=== PATIENT | male | born 1955 | race African-American/Black ===

== ENCOUNTER 2023-10-13 12:17 | Inpatient (IN) | payer MEDICARE, OTHER ==
[~2023-10-13] VITALS: Ht 172.7 cm; Wt 95.1 kg
[2023-10-13] VITALS (12 sets, daily range): BP systolic 87–137; BP diastolic 56–77; PULSE 67–117; RESP 18–32; TEMP 97.7–99.3; O2SAT 80–100
[~2023-10-13 12:17] MED LIST: ASPI-1444 PO; ATOR40TA28 PO; DIAZ10 PO; PANT-31 PO; POTA8TAB71 PO; QUET300T2 PO; TRAZ-252 PO; ZIPR80CA9 PO
[2023-10-13] MEDS ORDERED: 0.9% SODIUM CHLORIDE 10 ML SYRINGE IVP PRN (12:45)
[2023-10-13] MEDS ORDERED: SODIUM CHLORIDE 0.9% 2,800 ML IV ONE (13:00)
[2023-10-13 13:18] LABS: MEAN CORPUSCULAR HEMOGLOBIN 20.3 pg (26.0-34.0); MEAN CORPUSCULAR HGB CONC 27.8 G/dL (31.0-37.0); MEAN CORPUSCULAR VOLUME 73 fL (80-100); PLATELET COUNT (AUTO) 151 K/uL (150-450); RED BLOOD CELL COUNT(AUTO) 1.43 MIL/uL (4.50-5.90); RED CELL DISTRIBUTION WIDTH 17.6 % (11.5-14.5)
[2023-10-13 13:20] LABS: CARBON DIOXIDE 11 mmol/L (22-29); CHLORIDE 103 mmol/L (98-107); POTASSIUM 4.3 mmol/L (3.5-5.1); SODIUM SERUM 141 mmol/L (136-145)
[2023-10-13 13:21] LABS: ANION GAP 27 mmol/L (8-16); CALCIUM, TOTAL 8.8 mg/dL (8.8-10.5); CREATININE 1.78 mg/dL (0.60-1.30); GLOMERULAR FILTR. RATE CALC 46 mL/min (>60); GLUCOSE,RANDOM 127 mg/dL (70-110); UREA NITROGEN, BLOOD 15 mg/dL (7-18)
[2023-10-13 13:26] LABS: ALBUMIN 3.4 g/dL (3.4-5.0); ALKALINE PHOSPHATASE 60 U/L (46-116); ASPARTATE AMINOTRANSFERASE 30 U/L (15-37); TOTAL PROTEIN, SERUM 7.8 g/dL (6.4-8.2)
[2023-10-13 13:27] LABS: INR 1.5 (0.9-1.1); PROTHROMBIN TIME 15.2 SEC (9.4-11.6)
[2023-10-13 13:28] LABS: HEMOGLOBIN 2.9 g/dL (13.5-17.5)
[2023-10-13 13:30] LABS: HEMATOCRIT 10.5 % (41-53)
[2023-10-13 13:32] LABS: LACTIC ACID 14.8 mmol/L (0.4-2.0)
[2023-10-13 13:50] LABS: ALANINE AMINOTRANSFERASE 14 U/L (12-78)
[2023-10-13 14:03] LABS: BAND NEUTROPHILS % (MANUAL) 7 % (0-5); LYMPHOCYTES % (MANUAL) 17 % (22-44); MONOCYTES % (MANUAL) 3 % (2-9); RBC MORPHOLOGY COMMENT ABNORMAL RBC MORPH; SEGMENTED NEUTROPHILS % 73 % (40-70); TOTAL CELLS COUNTED 100
[2023-10-13] MEDS ORDERED: HYDROCODONE/ACETAMINOPHEN 5-325 MG TABLET PO PRN (15:00)
[2023-10-13] MEDS ORDERED: ONDANSETRON HCL 4 MG/2 ML VIAL IVP PRN (15:00)
[2023-10-13] MEDS ORDERED: MAGNESIUM HYDROXIDE SUSPENSION 30 ML UDCUP PO PRN (15:00)
[2023-10-13] MEDS ORDERED: BISACODYL 10 MG RECTAL RECTAL SUPPOSITORY PR PRN (15:00)
[2023-10-13] MEDS ORDERED: ACETAMINOPHEN 325 MG TABLET PO PRN (15:00)
[2023-10-13] MEDS ORDERED: ZOLPIDEM TARTRATE 5 MG TABLET PO PRN (15:00)
[2023-10-13 15:38] LABS: % IRON SATURATION 3.7 % (30-44)
[2023-10-13] MEDS ORDERED: PEG 3350/NA SULF,BICARB,CL/KCL 4000 ML SOLUTION PO ONE (16:45)
[2023-10-13] MEDS ORDERED: SODIUM CHLORIDE 0.9% 500 ML IV ONE (17:27)
[2023-10-13] MEDS ORDERED: ALBUTEROL SULFATE 2.5 MG/0.5 ML NEB SOLUTION NEB PRN (18:45)
[2023-10-13] MEDS ORDERED: FUROSEMIDE 20 MG/2 ML VIAL IVP ONE (18:45)
[2023-10-13] MEDS: ZIPRASIDONE HCL 80 MG CAPSULE PO SCH (18:46)
[2023-10-13] MEDS: IPRATROPIUM BROMIDE 0.5 MG/2.5 ML NEB SOLUTION NEB PRN (19:18)
[2023-10-13 20:09] LABS: ABG BASE EXCESS -13.8 mmol/L (-2.0-3.0); ABG CARBOXYHEMOGLOBIN 0.8 % (0.0-1.5); ABG HCO3 13.5 mmol/L (22.0-26.0); ABG METHEMOGLOBIN 1.3 % (0.0-1.5); ABG OXYGEN CONTENT 1.7 mL/dL (15.0-23.0); ABG OXYHEMOGLOBIN 24.3 % (94.0-100.0); ABG PCO2 28 mmHg (35-45); ABG PH 7.279 (7.35-7.450); SOURCE, BLOOD GAS ARTERIAL; TEMPERATURE, FAHRENHEIT, BG 99.3 FAHREN (96.0-98.6)
[2023-10-13 20:10] LABS: ABG OXYGEN SATURATION 24.8 % (95.0-98.0); ABG TOTAL HEMOGLOBIN 4.9 G/dL (12.0-18.0); ALLEN TEST, BLOOD GAS Positive; PO2, ARTERIAL BG 19.1 mmHg (79.0-87.0); SITE, BLOOD GAS RT RADIAL
[2023-10-13 20:11] LABS: O2 DEVICE,BLOOD GAS NON REBREATHER (ROOM AIR)
[2023-10-13] MEDS: ATORVASTATIN CALCIUM 40 MG TABLET PO SCH (21:00)
[2023-10-13] MEDS: QUEtiapine FUMARATE 300 MG TABLET PO SCH (21:00)
[2023-10-13] MEDS: TraZODone HCL 50 MG TABLET PO SCH (21:00)
[2023-10-13] MEDS: DOCUSATE SODIUM 100 MG CAPSULE PO SCH (21:00)
[2023-10-13 21:45] LABS: ABG BASE EXCESS -8.8 mmol/L (-2.0-3.0); ABG CARBOXYHEMOGLOBIN 1.6 % (0.0-1.5); ABG HCO3 17.7 mmol/L (22.0-26.0); ABG METHEMOGLOBIN 0.2 % (0.0-1.5); ABG OXYGEN CONTENT 8.3 mL/dL (15.0-23.0); ABG OXYGEN SATURATION 99.9 % (95.0-98.0); ABG OXYHEMOGLOBIN 98.1 % (94.0-100.0); ABG PCO2 29 mmHg (35-45); SOURCE, BLOOD GAS ARTERIAL; TEMPERATURE, FAHRENHEIT, BG 97.9 FAHREN (96.0-98.6)
[2023-10-13 21:46] LABS: ABG TOTAL HEMOGLOBIN 5.3 G/dL (12.0-18.0); ALLEN TEST, BLOOD GAS Positive; SITE, BLOOD GAS RT RADIAL
[2023-10-13 21:47] LABS: O2 DEVICE,BLOOD GAS BIPAP (ROOM AIR); SPONTANEOUS VT, BG 1373 ml
[2023-10-13] MEDS: PANTOPRAZOLE SODIUM 40 MG/VIAL IVP SCH (22:30)
[2023-10-13 23:27] LABS: BASOPHILS % (AUTO) 0.3 % (0.0-2.0); EOSINOPHILS % (AUTO) 0 % (1.0-6.0); LYMPHOCYTES # (AUTO) 1.3 K/uL (1.0-4.8); LYMPHOCYTES % (AUTO) 10.7 % (22.0-44.0); MEAN CORPUSCULAR HEMOGLOBIN 23.7 pg (26.0-34.0); MEAN CORPUSCULAR HGB CONC 29.6 G/dL (31.0-37.0); MEAN CORPUSCULAR VOLUME 80 fL (80-100); MONOCYTES # (AUTO) 1.7 K/uL (0.1-1.0); MONOCYTES % (AUTO) 14.2 % (2.0-9.0); NEUTROPHILS % (AUTO) 74.8 % (40.0-70.0); PLATELET COUNT (AUTO) 120 K/uL (150-450); RED BLOOD CELL COUNT(AUTO) 1.99 MIL/uL (4.50-5.90); RED CELL DISTRIBUTION WIDTH 22.7 % (11.5-14.5); WHITE BLOOD COUNT (AUTO) 12.1 K/uL (4.5-11.0)
[2023-10-13 23:42] LABS: HEMOGLOBIN 4.7 g/dL (13.5-17.5)
[2023-10-14] VITALS (28 sets, daily range): BP systolic 112–156; BP diastolic 53–99; PULSE 81–125; RESP 18–52; TEMP 98–99.8; O2SAT 83–100
[2023-10-14] MEDS: QUEtiapine FUMARATE 300 MG TABLET PO SCH ×2 (00:08→21:00)
[2023-10-14] MEDS: TraZODone HCL 50 MG TABLET PO SCH ×2 (00:08→21:00)
[2023-10-14] MEDS: ATORVASTATIN CALCIUM 40 MG TABLET PO SCH ×2 (00:09→21:00)
[2023-10-14 00:30] LABS: RBC MORPHOLOGY COMMENT ABNORMAL RBC MORPH
[2023-10-14] MEDS: DOCUSATE SODIUM 100 MG CAPSULE PO SCH ×3 (00:43→21:00)
[2023-10-14] MEDS ORDERED: SODIUM CHLORIDE 0.9% 500 ML IV ONE ×3 (01:20→10:35)
[2023-10-14 01:36] LABS: ABG BASE EXCESS -5.8 mmol/L (-2.0-3.0); ABG CARBOXYHEMOGLOBIN 1.3 % (0.0-1.5); ABG HCO3 19.9 mmol/L (22.0-26.0); ABG METHEMOGLOBIN 0.1 % (0.0-1.5); ABG OXYGEN SATURATION 93.4 % (95.0-98.0); ABG OXYHEMOGLOBIN 92.1 % (94.0-100.0); ABG PCO2 23 mmHg (35-45); ABG PH 7.495 (7.35-7.450); PO2, ARTERIAL BG 65.1 mmHg (79.0-87.0); SOURCE, BLOOD GAS ARTERIAL; TEMPERATURE, FAHRENHEIT, BG 98.9 FAHREN (96.0-98.6)
[2023-10-14 01:37] LABS: ABG TOTAL HEMOGLOBIN 5.3 G/dL (12.0-18.0); ALLEN TEST, BLOOD GAS Positive; SITE, BLOOD GAS LFT RADIAL
[2023-10-14 01:38] LABS: O2 DEVICE,BLOOD GAS OXYMIZER (ROOM AIR)
[2023-10-14 06:57] LABS: BASOPHILS % (AUTO) 0.3 % (0.0-2.0); EOSINOPHILS % (AUTO) 0.1 % (1.0-6.0); LYMPHOCYTES % (AUTO) 7.8 % (22.0-44.0); MEAN CORPUSCULAR HEMOGLOBIN 24.8 pg (26.0-34.0); MEAN CORPUSCULAR HGB CONC 31.2 G/dL (31.0-37.0); MEAN CORPUSCULAR VOLUME 80 fL (80-100); MONOCYTES # (AUTO) 1.1 K/uL (0.1-1.0); MONOCYTES % (AUTO) 8.6 % (2.0-9.0); NEUTROPHILS # (AUTO) 10.9 K/uL (1.8-7.7); NEUTROPHILS % (AUTO) 83.2 % (40.0-70.0); PLATELET COUNT (AUTO) 98 K/uL (150-450); RED BLOOD CELL COUNT(AUTO) 2.26 MIL/uL (4.50-5.90); WHITE BLOOD COUNT (AUTO) 13.1 K/uL (4.5-11.0)
[2023-10-14 07:03] LABS: ANION GAP 21 mmol/L (8-16); CALCIUM, TOTAL 8.7 mg/dL (8.8-10.5); CARBON DIOXIDE 16 mmol/L (22-29); CHLORIDE 108 mmol/L (98-107); CREATININE 1.38 mg/dL (0.60-1.30); GLOMERULAR FILTR. RATE CALC > 60 mL/min (>60); GLUCOSE,RANDOM 132 mg/dL (70-110); POTASSIUM 3.7 mmol/L (3.5-5.1); SODIUM SERUM 145 mmol/L (136-145); UREA NITROGEN, BLOOD 20 mg/dL (7-18)
[2023-10-14 08:04] LABS: HEMATOCRIT 17.9 % (41-53); HEMOGLOBIN 5.6 g/dL (13.5-17.5)
[2023-10-14 08:41] LABS: APPEARANCE,URINE CLEAR (CLEAR); BILIRUBIN,URINE NEGATIVE (NEGATIVE); COLOR,URINE LIGHT YELLOW (YELLOW); GLUCOSE, URINE (UA) NEGATIVE (NEGATIVE); LEUKOCYTE ESTERASE ,URINE NEGATIVE (NEGATIVE); NITRATE,URINE NEGATIVE (NEGATIVE); OCCULT BLOOD,URINE NEGATIVE (NEGATIVE); PROTEIN,URINE NEGATIVE (NEGATIVE); SPECIFIC GRAVITIY, URINE 1.012 (1.003-1.030); UROBILINOGEN,URINE <=1.0 mg/dL (<=1.0)
[2023-10-14 08:48] LABS: BACTERIA,URINE None Seen /HPF (None Seen); RBC,URINE None Seen /HPF (0-2); SQUAMOUS EPITHELIAL CELL,UR Few /LPF (None Seen); WBC,URINE None Seen /HPF (0-5)
[2023-10-14] MEDS: IPRATROPIUM BROMIDE 0.5 MG/2.5 ML NEB SOLUTION NEB PRN (08:54)
[2023-10-14] MEDS: PANTOPRAZOLE SODIUM 40 MG/VIAL IVP SCH ×2 (09:00→21:14)
[2023-10-14 09:12] LABS: TROPONIN I-HIGH SENSITIVITY 323 ng/L (<76)
[2023-10-14 09:36] LABS: RBC MORPHOLOGY COMMENT ABNORMAL RBC MORPH
[2023-10-14 09:55] LABS: ABG A-A DIFF O2 602.5 mmHg (10-20.0); ABG BASE EXCESS -3.7 mmol/L (-2.0-3.0); ABG CARBOXYHEMOGLOBIN 1.6 % (0.0-1.5); ABG HCO3 21.7 mmol/L (22.0-26.0); ABG METHEMOGLOBIN 0.1 % (0.0-1.5); ABG OXYGEN CONTENT 8.4 mL/dL (15.0-23.0); ABG OXYGEN SATURATION 96.4 % (95.0-98.0); ABG OXYHEMOGLOBIN 94.8 % (94.0-100.0); ABG PCO2 27 mmHg (35-45); ABG PH 7.486 (7.35-7.450); ABG TOTAL HEMOGLOBIN 6.2 G/dL (12.0-18.0); O2 DEVICE,BLOOD GAS HI FL CANNULA (ROOM AIR); PO2, ARTERIAL BG 83.3 mmHg (79.0-87.0); SITE, BLOOD GAS RT BRACHIAL; SOURCE, BLOOD GAS ARTERIAL
[2023-10-14] MEDS: ASPIRIN 81 MG DR TABLET PO SCH (10:42)
[2023-10-14] MEDS: ZIPRASIDONE HCL 80 MG CAPSULE PO SCH ×2 (10:42→17:30)
[2023-10-14] MEDS ORDERED: ALBUTEROL SULFATE 2.5 MG/0.5 ML NEB SOLUTION NEB PRN (12:00)
[2023-10-14] MEDS ORDERED: IPRATROPIUM BROMIDE 0.5 MG/2.5 ML NEB SOLUTION NEB PRN (12:00)
[2023-10-14] MEDS: MethylPREDNISolone SOD SUCC 125 MG/2 ML VIAL IVP SCH ×2 (12:42→18:12)
[2023-10-14] MEDS: ALBUTEROL SULFATE 2.5 MG/0.5 ML NEB SOLUTION NEB SCH ×2 (14:00→20:09)
[2023-10-14] MEDS: IPRATROPIUM BROMIDE 0.5 MG/2.5 ML NEB SOLUTION NEB SCH ×2 (14:00→20:09)
[2023-10-14] MEDS: LORazepam 2 MG/ML VIAL IVP PRN (14:57)
[2023-10-14] MEDS: BENZONATATE 100 MG CAPSULE PO SCH ×2 (16:00→21:00)
[2023-10-14] MEDS ORDERED: SODIUM CHLORIDE 0.9% 250 ML IV ONE ×2 (16:06→20:52)
[2023-10-14] MEDS: CefTRIAXone SODIUM 2 GM in DEXTROSE 5%-WATER 50 ML IV SCH (16:09)
[2023-10-14] MEDS: DOXYCYCLINE HYCLATE 100 MG in DEXTROSE 5%-WATER 100 ML IV SCH (16:10)
[2023-10-14 16:44] LABS: MEAN CORPUSCULAR HEMOGLOBIN 25.2 pg (26.0-34.0); MEAN CORPUSCULAR VOLUME 79 fL (80-100); PLATELET COUNT (AUTO) 92 K/uL (150-450); RED BLOOD CELL COUNT(AUTO) 2.52 MIL/uL (4.50-5.90); RED CELL DISTRIBUTION WIDTH 22.7 % (11.5-14.5); WHITE BLOOD COUNT (AUTO) 19.3 K/uL (4.5-11.0)
[2023-10-14 16:45] LABS: ANION GAP 11 mmol/L (8-16); CALCIUM, TOTAL 8.5 mg/dL (8.8-10.5); CARBON DIOXIDE 23 mmol/L (22-29); CHLORIDE 112 mmol/L (98-107); CREATININE 1.17 mg/dL (0.60-1.30); GLOMERULAR FILTR. RATE CALC > 60 mL/min (>60); GLUCOSE,RANDOM 134 mg/dL (70-110); POTASSIUM 3.8 mmol/L (3.5-5.1); SODIUM SERUM 146 mmol/L (136-145); UREA NITROGEN, BLOOD 20 mg/dL (7-18)
[2023-10-14 16:50] LABS: D-DIMER 1.84 mg/L FEU (0.00-0.50); INR 1.4 (0.9-1.1); PROTHROMBIN TIME 14.8 SEC (9.4-11.6)
[2023-10-14 16:51] LABS: ALANINE AMINOTRANSFERASE 43 U/L (12-78); ALKALINE PHOSPHATASE 55 U/L (46-116); ASPARTATE AMINOTRANSFERASE 87 U/L (15-37); BILIRUBIN,TOTAL 2.7 mg/dL (0.1-1.0)
[2023-10-14 16:57] LABS: HEMATOCRIT 19.9 % (41-53); HEMOGLOBIN 6.3 g/dL (13.5-17.5)
[2023-10-14 17:57] LABS: BAND NEUTROPHILS % (MANUAL) 5 % (0-5); LYMPHOCYTES % (MANUAL) 10 % (22-44); MONOCYTES % (MANUAL) 2 % (2-9); SEGMENTED NEUTROPHILS % 83 % (40-70); TOTAL CELLS COUNTED 100
[2023-10-14 17:58] LABS: RBC MORPHOLOGY COMMENT ABNORMAL RBC MORPH
[2023-10-14] MEDS: GuaiFENesin SR 600 MG ER TABLET PO SCH (21:00)
[2023-10-14] MEDS: MORPHINE SULFATE 2 MG/ML SYRINGE IVP PRN (23:23)
[2023-10-15] VITALS (15 sets, daily range): BP systolic 124–167; BP diastolic 65–80; PULSE 109–117; RESP 18–41; TEMP 97.7–100.2; O2SAT 92–98
[2023-10-15] MEDS: MethylPREDNISolone SOD SUCC 125 MG/2 ML VIAL IVP SCH ×5 (00:29→23:31)
[2023-10-15] MEDS: IPRATROPIUM BROMIDE 0.5 MG/2.5 ML NEB SOLUTION NEB SCH ×4 (01:24→19:17)
[2023-10-15] MEDS: ALBUTEROL SULFATE 2.5 MG/0.5 ML NEB SOLUTION NEB SCH ×4 (01:24→19:17)
[2023-10-15 01:27] LABS: BASOPHILS % (AUTO) 0.4 % (0.0-2.0); EOSINOPHILS % (AUTO) 0 % (1.0-6.0); HEMATOCRIT 22.9 % (41-53); HEMOGLOBIN 7.1 g/dL (13.5-17.5); LYMPHOCYTES # (AUTO) 0.7 K/uL (1.0-4.8); LYMPHOCYTES % (AUTO) 3.6 % (22.0-44.0); MEAN CORPUSCULAR HEMOGLOBIN 25.3 pg (26.0-34.0); MEAN CORPUSCULAR HGB CONC 31.2 G/dL (31.0-37.0); MEAN CORPUSCULAR VOLUME 81 fL (80-100); MONOCYTES # (AUTO) 0.9 K/uL (0.1-1.0); MONOCYTES % (AUTO) 4.8 % (2.0-9.0); NEUTROPHILS # (AUTO) 16.9 K/uL (1.8-7.7); NEUTROPHILS % (AUTO) 91.2 % (40.0-70.0); PLATELET COUNT (AUTO) 86 K/uL (150-450); RED BLOOD CELL COUNT(AUTO) 2.82 MIL/uL (4.50-5.90); WHITE BLOOD COUNT (AUTO) 18.5 K/uL (4.5-11.0)
[2023-10-15] MEDS: LORazepam 2 MG/ML VIAL IVP PRN ×3 (04:04→16:37)
[2023-10-15] MEDS: DOXYCYCLINE HYCLATE 100 MG in DEXTROSE 5%-WATER 100 ML IV SCH ×2 (04:04→16:03)
[2023-10-15 06:09] LABS: EOSINOPHILS % (AUTO) 0 % (1.0-6.0); HEMOGLOBIN 7.3 g/dL (13.5-17.5); LYMPHOCYTES # (AUTO) 0.6 K/uL (1.0-4.8); LYMPHOCYTES % (AUTO) 3.3 % (22.0-44.0); MEAN CORPUSCULAR HEMOGLOBIN 26.1 pg (26.0-34.0); MEAN CORPUSCULAR HGB CONC 31.7 G/dL (31.0-37.0); MEAN CORPUSCULAR VOLUME 82 fL (80-100); MONOCYTES # (AUTO) 1.2 K/uL (0.1-1.0); MONOCYTES % (AUTO) 6.5 % (2.0-9.0); NEUTROPHILS # (AUTO) 16.4 K/uL (1.8-7.7); PLATELET COUNT (AUTO) 83 K/uL (150-450); RED CELL DISTRIBUTION WIDTH 21.9 % (11.5-14.5); WHITE BLOOD COUNT (AUTO) 18.2 K/uL (4.5-11.0)
[2023-10-15 06:20] LABS: NEUTROPHILS % (AUTO) 90.2 % (40.0-70.0)
[2023-10-15 06:21] LABS: ALANINE AMINOTRANSFERASE 46 U/L (12-78); ALBUMIN 2.9 g/dL (3.4-5.0); ALKALINE PHOSPHATASE 54 U/L (46-116); ANION GAP 12 mmol/L (8-16); ASPARTATE AMINOTRANSFERASE 84 U/L (15-37); BILIRUBIN,TOTAL 2.1 mg/dL (0.1-1.0); CALCIUM, TOTAL 8.5 mg/dL (8.8-10.5); CARBON DIOXIDE 23 mmol/L (22-29); CHLORIDE 114 mmol/L (98-107); CREATININE 1.11 mg/dL (0.60-1.30); GLOMERULAR FILTR. RATE CALC > 60 mL/min (>60); GLUCOSE,RANDOM 146 mg/dL (70-110); POTASSIUM 3.5 mmol/L (3.5-5.1); SODIUM SERUM 149 mmol/L (136-145); UREA NITROGEN, BLOOD 19 mg/dL (7-18)
[2023-10-15 06:28] LABS: LACTIC ACID 3.1 mmol/L (0.4-2.0); TROPONIN I-HIGH SENSITIVITY 149 ng/L (<76)
[2023-10-15] MEDS: ZIPRASIDONE HCL 80 MG CAPSULE PO SCH ×2 (08:00→17:04)
[2023-10-15] MEDS: MORPHINE SULFATE 2 MG/ML SYRINGE IVP PRN ×3 (08:27→21:24)
[2023-10-15] MEDS: PANTOPRAZOLE SODIUM 40 MG/VIAL IVP SCH ×2 (08:27→21:23)
[2023-10-15] MEDS: DOCUSATE SODIUM 100 MG CAPSULE PO SCH ×3 (08:28→22:04)
[2023-10-15] MEDS: ASPIRIN 81 MG DR TABLET PO SCH (08:28)
[2023-10-15] MEDS: GuaiFENesin SR 600 MG ER TABLET PO SCH ×3 (08:29→22:04)
[2023-10-15] MEDS: BENZONATATE 100 MG CAPSULE PO SCH ×4 (08:29→22:04)
[2023-10-15 11:31] LABS: GLUCOSE,POINT OF CARE 101 MG/DL (70-110)
[2023-10-15] MEDS ORDERED: ACETAMINOPHEN 650 MG RECTAL SUPPOSITORY PR PRN (13:15)
[2023-10-15] MEDS ORDERED: DEXTROSE 5%-WATER 500 ML IV ONE (13:15)
[2023-10-15] MEDS: CefTRIAXone SODIUM 2 GM in DEXTROSE 5%-WATER 50 ML IV SCH (15:04)
[2023-10-15] MEDS: TraZODone HCL 50 MG TABLET PO SCH ×2 (21:00→21:50)
[2023-10-15] MEDS: ATORVASTATIN CALCIUM 40 MG TABLET PO SCH (21:00)
[2023-10-15] MEDS: QUEtiapine FUMARATE 300 MG TABLET PO SCH ×2 (21:00→21:51)
[2023-10-15] MEDS: CHLORHEXIDINE GLUCONATE 2% TOWELETTE [2'S/6'S] TP SCH (21:24)
[2023-10-16] VITALS (14 sets, daily range): BP systolic 113–159; BP diastolic 66–98; PULSE 103–113; RESP 11–30; TEMP 98–98.8; O2SAT 94–100
[2023-10-16] MEDS: IPRATROPIUM BROMIDE 0.5 MG/2.5 ML NEB SOLUTION NEB SCH ×4 (02:17→19:45)
[2023-10-16] MEDS: ALBUTEROL SULFATE 2.5 MG/0.5 ML NEB SOLUTION NEB SCH ×4 (02:17→19:45)
[2023-10-16] MEDS: DOXYCYCLINE HYCLATE 100 MG in DEXTROSE 5%-WATER 100 ML IV SCH ×2 (05:17→17:12)
[2023-10-16] MEDS: MethylPREDNISolone SOD SUCC 125 MG/2 ML VIAL IVP SCH ×3 (05:17→17:29)
[2023-10-16 06:09] LABS: HEMATOCRIT 25.2 % (41-53); HEMOGLOBIN 7.9 g/dL (13.5-17.5); MEAN CORPUSCULAR HGB CONC 31.5 G/dL (31.0-37.0); MEAN CORPUSCULAR VOLUME 83 fL (80-100); PLATELET COUNT (AUTO) 77 K/uL (150-450); RED BLOOD CELL COUNT(AUTO) 3.04 MIL/uL (4.50-5.90); RED CELL DISTRIBUTION WIDTH 22.5 % (11.5-14.5); WHITE BLOOD COUNT (AUTO) 16.9 K/uL (4.5-11.0)
[2023-10-16 06:14] LABS: ANION GAP 15 mmol/L (8-16); CALCIUM, TOTAL 8.7 mg/dL (8.8-10.5); CARBON DIOXIDE 22 mmol/L (22-29); CHLORIDE 116 mmol/L (98-107); CREATININE 1.17 mg/dL (0.60-1.30); GLOMERULAR FILTR. RATE CALC > 60 mL/min (>60); GLUCOSE,RANDOM 221 mg/dL (70-110); POTASSIUM 3.3 mmol/L (3.5-5.1); SODIUM SERUM 153 mmol/L (136-145); UREA NITROGEN, BLOOD 22 mg/dL (7-18)
[2023-10-16 06:54] LABS: BAND NEUTROPHILS % (MANUAL) 6 % (0-5); LYMPHOCYTES % (MANUAL) 5 % (22-44); RBC MORPHOLOGY COMMENT ABNORMAL RBC MORPH; SEGMENTED NEUTROPHILS % 89 % (40-70); TOTAL CELLS COUNTED 100
[2023-10-16] MEDS: DOCUSATE SODIUM 100 MG CAPSULE PO SCH ×2 (08:45→20:58)
[2023-10-16] MEDS: GuaiFENesin SR 600 MG ER TABLET PO SCH ×2 (08:45→20:59)
[2023-10-16] MEDS: BENZONATATE 100 MG CAPSULE PO SCH ×3 (08:45→20:58)
[2023-10-16] MEDS: PANTOPRAZOLE SODIUM 40 MG/VIAL IVP SCH ×2 (08:46→20:58)
[2023-10-16] MEDS: ASPIRIN 81 MG DR TABLET PO SCH (08:46)
[2023-10-16] MEDS: ZIPRASIDONE HCL 80 MG CAPSULE PO SCH ×2 (08:46→17:27)
[2023-10-16] MEDS ORDERED: POTASSIUM CHLORIDE 10% 40 MEQ/30 ML LIQUID UDCUP PO ONE ×2 (12:15→20:00)
[2023-10-16] MEDS ORDERED: DEXTROSE 5%-WATER 1,000 ML IV ONE (13:30)
[2023-10-16] MEDS: CefTRIAXone SODIUM 2 GM in DEXTROSE 5%-WATER 50 ML IV SCH (14:04)
[2023-10-16] MEDS: QUEtiapine FUMARATE 300 MG TABLET PO SCH (20:59)
[2023-10-16] MEDS: TraZODone HCL 50 MG TABLET PO SCH (20:59)
[2023-10-16] MEDS: ATORVASTATIN CALCIUM 40 MG TABLET PO SCH (20:59)
[2023-10-16] MEDS: CHLORHEXIDINE GLUCONATE 2% TOWELETTE [2'S/6'S] TP SCH (21:00)
[2023-10-16] MEDS: MORPHINE SULFATE 2 MG/ML SYRINGE IVP PRN (21:28)
[2023-10-17] VITALS (13 sets, daily range): BP systolic 127–161; BP diastolic 77–97; PULSE 92–102; RESP 12–26; TEMP 98–98.4; O2SAT 89–98
[2023-10-17] MEDS: MethylPREDNISolone SOD SUCC 125 MG/2 ML VIAL IVP SCH ×4 (00:33→18:12)
[2023-10-17] MEDS: ALBUTEROL SULFATE 2.5 MG/0.5 ML NEB SOLUTION NEB SCH ×4 (01:55→19:37)
[2023-10-17] MEDS: IPRATROPIUM BROMIDE 0.5 MG/2.5 ML NEB SOLUTION NEB SCH ×4 (01:55→19:37)
[2023-10-17] MEDS: DOXYCYCLINE HYCLATE 100 MG in DEXTROSE 5%-WATER 100 ML IV SCH ×2 (03:36→16:45)
[2023-10-17 05:23] LABS: HEMATOCRIT 25.3 % (41-53); MEAN CORPUSCULAR HEMOGLOBIN 26.1 pg (26.0-34.0); MEAN CORPUSCULAR HGB CONC 31.6 G/dL (31.0-37.0); MEAN CORPUSCULAR VOLUME 83 fL (80-100); PLATELET COUNT (AUTO) 76 K/uL (150-450); RED BLOOD CELL COUNT(AUTO) 3.07 MIL/uL (4.50-5.90); RED CELL DISTRIBUTION WIDTH 23.5 % (11.5-14.5); WHITE BLOOD COUNT (AUTO) 13.7 K/uL (4.5-11.0)
[2023-10-17 05:34] LABS: ANION GAP 13 mmol/L (8-16); CARBON DIOXIDE 22 mmol/L (22-29); CHLORIDE 114 mmol/L (98-107); CREATININE 1.07 mg/dL (0.60-1.30); GLOMERULAR FILTR. RATE CALC > 60 mL/min (>60); GLUCOSE,RANDOM 209 mg/dL (70-110); PHOSPHORUS 4.1 mg/dL (2.5-4.9); POTASSIUM 3.8 mmol/L (3.5-5.1); SODIUM SERUM 149 mmol/L (136-145); UREA NITROGEN, BLOOD 23 mg/dL (7-18)
[2023-10-17 05:36] LABS: CALCIUM, TOTAL 8.4 mg/dL (8.8-10.5)
[2023-10-17 05:53] LABS: BAND NEUTROPHILS % (MANUAL) 7 % (0-5); LYMPHOCYTES % (MANUAL) 3 % (22-44); MONOCYTES % (MANUAL) 1 % (2-9); RBC MORPHOLOGY COMMENT ABNORMAL RBC MORPH; SEGMENTED NEUTROPHILS % 89 % (40-70); TOTAL CELLS COUNTED 100
[2023-10-17] MEDS ORDERED: SODIUM CHLORIDE 0.9% 1,000 ML ONE (06:05)
[2023-10-17] MEDS: BENZONATATE 100 MG CAPSULE PO SCH ×3 (08:08→20:49)
[2023-10-17] MEDS: GuaiFENesin SR 600 MG ER TABLET PO SCH ×2 (08:08→20:49)
[2023-10-17] MEDS: ZIPRASIDONE HCL 80 MG CAPSULE PO SCH ×2 (08:08→18:12)
[2023-10-17] MEDS: ASPIRIN 81 MG DR TABLET PO SCH (08:09)
[2023-10-17] MEDS: PANTOPRAZOLE SODIUM 40 MG/VIAL IVP SCH ×2 (08:09→20:48)
[2023-10-17] MEDS: DOCUSATE SODIUM 100 MG CAPSULE PO SCH ×2 (08:09→20:49)
[2023-10-17] MEDS ORDERED: DEXTROSE 5%-WATER 1,000 ML IV ONE (13:45)
[2023-10-17] MEDS: CefTRIAXone SODIUM 2 GM in DEXTROSE 5%-WATER 50 ML IV SCH (14:42)
[2023-10-17] MEDS: TraZODone HCL 50 MG TABLET PO SCH (20:49)
[2023-10-17] MEDS: QUEtiapine FUMARATE 300 MG TABLET PO SCH (20:49)
[2023-10-17] MEDS: ATORVASTATIN CALCIUM 40 MG TABLET PO SCH (20:49)
[2023-10-17] MEDS: CHLORHEXIDINE GLUCONATE 2% TOWELETTE [2'S/6'S] TP SCH (22:50)
[2023-10-18] VITALS (14 sets, daily range): BP systolic 136–166; BP diastolic 73–89; PULSE 86–124; RESP 15–20; TEMP 98.2–98.7; O2SAT 90–100
[2023-10-18] MEDS: MethylPREDNISolone SOD SUCC 125 MG/2 ML VIAL IVP SCH ×3 (00:10→12:49)
[2023-10-18] MEDS: ALBUTEROL SULFATE 2.5 MG/0.5 ML NEB SOLUTION NEB SCH ×3 (01:21→19:51)
[2023-10-18] MEDS: IPRATROPIUM BROMIDE 0.5 MG/2.5 ML NEB SOLUTION NEB SCH ×3 (01:21→19:51)
[2023-10-18] MEDS: LORazepam 2 MG/ML VIAL IVP PRN (04:50)
[2023-10-18] MEDS: DOXYCYCLINE HYCLATE 100 MG in DEXTROSE 5%-WATER 100 ML IV SCH ×2 (04:54→16:30)
[2023-10-18 05:23] LABS: ANION GAP 15 mmol/L (8-16); CALCIUM, TOTAL 8.8 mg/dL (8.8-10.5); CARBON DIOXIDE 21 mmol/L (22-29); CHLORIDE 114 mmol/L (98-107); CREATININE 1.05 mg/dL (0.60-1.30); GLOMERULAR FILTR. RATE CALC > 60 mL/min (>60); GLUCOSE,RANDOM 166 mg/dL (70-110); POTASSIUM 3.7 mmol/L (3.5-5.1); SODIUM SERUM 150 mmol/L (136-145); UREA NITROGEN, BLOOD 23 mg/dL (7-18)
[2023-10-18] MEDS ORDERED: LIDOCAINE/PF 2% 5 ML VIAL IM ONE (06:47)
[2023-10-18] MEDS ORDERED: PROPOFOL 1% ISO-OSM 1000 MG/100 ML BOTTLE IV ONE (06:47)
[2023-10-18 07:40] LABS: HEMATOCRIT 29.4 % (41-53); MEAN CORPUSCULAR HGB CONC 30.7 G/dL (31.0-37.0); MEAN CORPUSCULAR VOLUME 85 fL (80-100); PLATELET COUNT (AUTO) 77 K/uL (150-450); RED BLOOD CELL COUNT(AUTO) 3.48 MIL/uL (4.50-5.90); RED CELL DISTRIBUTION WIDTH 23.4 % (11.5-14.5); WHITE BLOOD COUNT (AUTO) 13.5 K/uL (4.5-11.0)
[2023-10-18 08:11] LABS: BAND NEUTROPHILS % (MANUAL) 5 % (0-5); LYMPHOCYTES % (MANUAL) 3 % (22-44); MONOCYTES % (MANUAL) 2 % (2-9); SEGMENTED NEUTROPHILS % 90 % (40-70); TOTAL CELLS COUNTED 100
[2023-10-18] MEDS: PANTOPRAZOLE SODIUM 40 MG/VIAL IVP SCH ×2 (08:28→22:20)
[2023-10-18] MEDS: GuaiFENesin SR 600 MG ER TABLET PO SCH ×2 (08:29→22:21)
[2023-10-18] MEDS: ZIPRASIDONE HCL 80 MG CAPSULE PO SCH ×2 (08:29→18:14)
[2023-10-18] MEDS: BENZONATATE 100 MG CAPSULE PO SCH ×3 (08:29→22:21)
[2023-10-18] MEDS: ASPIRIN 81 MG DR TABLET PO SCH (08:30)
[2023-10-18] MEDS: DOCUSATE SODIUM 100 MG CAPSULE PO SCH ×2 (08:30→22:20)
[2023-10-18] MEDS ORDERED: DEXTROSE 5%-WATER 1,000 ML IV ONE (13:45)
[2023-10-18] MEDS: CefTRIAXone SODIUM 2 GM in DEXTROSE 5%-WATER 50 ML IV SCH (15:36)
[2023-10-18] MEDS: BUDESONIDE 0.5 MG/2 ML NEB SOLUTION NEB SCH (19:51)
[2023-10-18] MEDS: ATORVASTATIN CALCIUM 40 MG TABLET PO SCH (22:20)
[2023-10-18] MEDS: TraZODone HCL 50 MG TABLET PO SCH (22:20)
[2023-10-18] MEDS: CHLORHEXIDINE GLUCONATE 2% TOWELETTE [2'S/6'S] TP SCH (22:21)
[2023-10-18] MEDS: QUEtiapine FUMARATE 300 MG TABLET PO SCH (22:21)
[2023-10-19] VITALS (15 sets, daily range): BP systolic 107–158; BP diastolic 45–107; PULSE 88–103; RESP 18–22; TEMP 97.9–98.6; O2SAT 89–96
[2023-10-19] MEDS: MethylPREDNISolone SOD SUCC 125 MG/2 ML VIAL IVP SCH ×3 (00:15→16:28)
[2023-10-19] MEDS: LORazepam 2 MG/ML VIAL IVP PRN (01:29)
[2023-10-19] MEDS: ALBUTEROL SULFATE 2.5 MG/0.5 ML NEB SOLUTION NEB SCH ×4 (02:16→19:51)
[2023-10-19] MEDS: IPRATROPIUM BROMIDE 0.5 MG/2.5 ML NEB SOLUTION NEB SCH ×4 (02:18→19:51)
[2023-10-19] MEDS: MORPHINE SULFATE 2 MG/ML SYRINGE IVP PRN (02:48)
[2023-10-19] MEDS: DOXYCYCLINE HYCLATE 100 MG in DEXTROSE 5%-WATER 100 ML IV SCH ×2 (04:48→17:38)
[2023-10-19 07:05] LABS: ANION GAP 12 mmol/L (8-16); CALCIUM, TOTAL 8.5 mg/dL (8.8-10.5); CARBON DIOXIDE 23 mmol/L (22-29); CHLORIDE 111 mmol/L (98-107); CREATININE 0.99 mg/dL (0.60-1.30); GLOMERULAR FILTR. RATE CALC > 60 mL/min (>60); GLUCOSE,RANDOM 135 mg/dL (70-110); POTASSIUM 4.1 mmol/L (3.5-5.1); SODIUM SERUM 146 mmol/L (136-145); UREA NITROGEN, BLOOD 26 mg/dL (7-18)
[2023-10-19 07:12] LABS: HEMOGLOBIN 8.9 g/dL (13.5-17.5); MEAN CORPUSCULAR HEMOGLOBIN 25.5 pg (26.0-34.0); MEAN CORPUSCULAR HGB CONC 30.8 G/dL (31.0-37.0); MEAN CORPUSCULAR VOLUME 83 fL (80-100); PLATELET COUNT (AUTO) 73 K/uL (150-450); RED BLOOD CELL COUNT(AUTO) 3.51 MIL/uL (4.50-5.90); RED CELL DISTRIBUTION WIDTH 25.1 % (11.5-14.5); WHITE BLOOD COUNT (AUTO) 14.3 K/uL (4.5-11.0)
[2023-10-19 07:45] LABS: BAND NEUTROPHILS % (MANUAL) 0 % (0-5)
[2023-10-19] MEDS: BUDESONIDE 0.5 MG/2 ML NEB SOLUTION NEB SCH ×2 (07:46→19:51)
[2023-10-19 07:47] LABS: LYMPHOCYTES % (MANUAL) 4 % (22-44); METAMYELOCYTES % 1 % (0-0); MONOCYTES % (MANUAL) 4 % (2-9); MYELOCYTES % 1 % (0-0); SEGMENTED NEUTROPHILS % 90 % (40-70); TOTAL CELLS COUNTED 100
[2023-10-19] MEDS: ZIPRASIDONE HCL 80 MG CAPSULE PO SCH ×2 (08:31→18:18)
[2023-10-19] MEDS: PANTOPRAZOLE SODIUM 40 MG/VIAL IVP SCH ×2 (08:31→20:25)
[2023-10-19] MEDS: BENZONATATE 100 MG CAPSULE PO SCH ×3 (08:32→20:24)
[2023-10-19] MEDS: DOCUSATE SODIUM 100 MG CAPSULE PO SCH ×2 (08:32→20:24)
[2023-10-19] MEDS: GuaiFENesin SR 600 MG ER TABLET PO SCH ×2 (08:32→20:24)
[2023-10-19] MEDS: ASPIRIN 81 MG DR TABLET PO SCH (08:32)
[2023-10-19] MEDS ORDERED: DEXTROSE 5%-WATER 500 ML IV ONE (13:30)
[2023-10-19] MEDS: CefTRIAXone SODIUM 2 GM in DEXTROSE 5%-WATER 50 ML IV SCH (16:28)
[2023-10-19] MEDS: TraZODone HCL 50 MG TABLET PO SCH (20:24)
[2023-10-19] MEDS: ATORVASTATIN CALCIUM 40 MG TABLET PO SCH (20:24)
[2023-10-19] MEDS: QUEtiapine FUMARATE 300 MG TABLET PO SCH (20:24)
[2023-10-19] MEDS: CHLORHEXIDINE GLUCONATE 2% TOWELETTE [2'S/6'S] TP SCH (22:49)
[2023-10-20] VITALS (15 sets, daily range): BP systolic 120–153; BP diastolic 62–86; PULSE 80–100; RESP 18–21; TEMP 97.5–98.7; O2SAT 93–98
[2023-10-20] MEDS: MethylPREDNISolone SOD SUCC 125 MG/2 ML VIAL IVP SCH ×4 (00:31→23:52)
[2023-10-20] MEDS: ALBUTEROL SULFATE 2.5 MG/0.5 ML NEB SOLUTION NEB SCH ×4 (02:53→19:37)
[2023-10-20] MEDS: IPRATROPIUM BROMIDE 0.5 MG/2.5 ML NEB SOLUTION NEB SCH ×4 (02:53→19:37)
[2023-10-20] MEDS: DOXYCYCLINE HYCLATE 100 MG in DEXTROSE 5%-WATER 100 ML IV SCH ×2 (03:41→16:19)
[2023-10-20 07:23] LABS: ANION GAP 12 mmol/L (8-16); CALCIUM, TOTAL 8.6 mg/dL (8.8-10.5); CARBON DIOXIDE 24 mmol/L (22-29); CHLORIDE 109 mmol/L (98-107); CREATININE 1.03 mg/dL (0.60-1.30); GLOMERULAR FILTR. RATE CALC > 60 mL/min (>60); GLUCOSE,RANDOM 147 mg/dL (70-110); POTASSIUM 4.1 mmol/L (3.5-5.1); SODIUM SERUM 145 mmol/L (136-145); UREA NITROGEN, BLOOD 24 mg/dL (7-18)
[2023-10-20] MEDS: BUDESONIDE 0.5 MG/2 ML NEB SOLUTION NEB SCH ×2 (07:48→19:37)
[2023-10-20] MEDS: DOCUSATE SODIUM 100 MG CAPSULE PO SCH ×2 (08:20→21:17)
[2023-10-20] MEDS: PANTOPRAZOLE SODIUM 40 MG/VIAL IVP SCH ×2 (08:20→20:54)
[2023-10-20] MEDS: GuaiFENesin SR 600 MG ER TABLET PO SCH ×2 (08:20→21:17)
[2023-10-20] MEDS: ASPIRIN 81 MG DR TABLET PO SCH (08:20)
[2023-10-20] MEDS: BENZONATATE 100 MG CAPSULE PO SCH ×3 (08:20→21:17)
[2023-10-20] MEDS: ZIPRASIDONE HCL 80 MG CAPSULE PO SCH ×2 (08:20→17:05)
[2023-10-20 08:36] LABS: WHITE BLOOD COUNT (AUTO) 12.5 K/uL (4.5-11.0)
[2023-10-20 08:37] LABS: HEMATOCRIT 27.3 % (41-53); HEMOGLOBIN 8.7 g/dL (13.5-17.5); MEAN CORPUSCULAR HEMOGLOBIN 26.2 pg (26.0-34.0); MEAN CORPUSCULAR HGB CONC 31.8 G/dL (31.0-37.0); MEAN CORPUSCULAR VOLUME 83 fL (80-100); PLATELET COUNT (AUTO) 77 K/uL (150-450); RED BLOOD CELL COUNT(AUTO) 3.32 MIL/uL (4.50-5.90); RED CELL DISTRIBUTION WIDTH 24.6 % (11.5-14.5)
[2023-10-20 08:39] LABS: BAND NEUTROPHILS % (MANUAL) 2 % (0-5); LYMPHOCYTES % (MANUAL) 5 % (22-44); METAMYELOCYTES % 1 % (0-0); MONOCYTES % (MANUAL) 6 % (2-9); MYELOCYTES % 1 % (0-0); SEGMENTED NEUTROPHILS % 85 % (40-70); TOTAL CELLS COUNTED 100
[2023-10-20 08:40] LABS: RBC MORPHOLOGY COMMENT ABNORMAL R
[2023-10-20] MEDS: CefTRIAXone SODIUM 2 GM in DEXTROSE 5%-WATER 50 ML IV SCH (14:24)
[2023-10-20] MEDS: QUEtiapine FUMARATE 300 MG TABLET PO SCH (17:04)
[2023-10-20] MEDS ORDERED: ACETAMINOPHEN 325 MG TABLET PO PRN (17:15)
[2023-10-20] MEDS: ATORVASTATIN CALCIUM 40 MG TABLET PO SCH (21:17)
[2023-10-20] MEDS: TraZODone HCL 50 MG TABLET PO SCH (21:17)
[2023-10-20] MEDS: CHLORHEXIDINE GLUCONATE 2% TOWELETTE [2'S/6'S] TP SCH (22:00)
[2023-10-21] VITALS (7 sets, daily range): BP systolic 110–131; BP diastolic 56–74; PULSE 59–94; RESP 18–20; TEMP 97.9–98.9; O2SAT 96–98
[2023-10-21 00:35] LABS: APPEARANCE,URINE CLEAR (CLEAR); BILIRUBIN,URINE NEGATIVE (NEGATIVE); COLOR,URINE LIGHT YELLOW (YELLOW); GLUCOSE, URINE (UA) NEGATIVE (NEGATIVE); KETONES,URINE NEGATIVE (NEGATIVE); LEUKOCYTE ESTERASE ,URINE NEGATIVE (NEGATIVE); NITRATE,URINE NEGATIVE (NEGATIVE); OCCULT BLOOD,URINE SMALL (NEGATIVE); PROTEIN,URINE TRACE mg/dL (NEGATIVE); SPECIFIC GRAVITIY, URINE 1.023 (1.003-1.030); UROBILINOGEN,URINE <=1.0 mg/dL (<=1.0)
[2023-10-21 00:46] LABS: ALCOHOL, URINE DRUG SCREEN NEGATIVE (NEGATIVE); AMPHET/METH SCREEN,URINE NEGATIVE (NEGATIVE); BARBITURATE SCREEN, URINE NEGATIVE (NEGATIVE); BENZODIAZEPINES SCREEN,URINE POSITIVE (NEGATIVE); CANNABINOID SCREEN,URINE NEGATIVE (NEGATIVE); COCAINE SCREEN,URINE NEGATIVE (NEGATIVE); METHADONE SCREEN, URINE NEGATIVE (NEGATIVE); OPIATE SCREEN,URINE NEGATIVE (NEGATIVE); PHENCYCLIDINE SCREEN,URINE NEGATIVE (NEGATIVE)
[2023-10-21 01:00] LABS: BACTERIA,URINE None Seen /HPF (None Seen); SQUAMOUS EPITHELIAL CELL,UR None Seen /LPF (None Seen); WBC,URINE 0-2 /HPF (0-5)
[2023-10-21] MEDS: IPRATROPIUM BROMIDE 0.5 MG/2.5 ML NEB SOLUTION NEB SCH ×3 (02:00→13:11)
[2023-10-21] MEDS: ALBUTEROL SULFATE 2.5 MG/0.5 ML NEB SOLUTION NEB SCH ×3 (02:00→13:11)
[2023-10-21] MEDS ORDERED: SODIUM CHLORIDE 0.9% 500 ML IV ONE (03:28)
[2023-10-21] MEDS: DOXYCYCLINE HYCLATE 100 MG in DEXTROSE 5%-WATER 100 ML IV SCH ×2 (03:31→16:50)
[2023-10-21 06:40] LABS: HEMATOCRIT 24.1 % (41-53); HEMOGLOBIN 7.9 g/dL (13.5-17.5); MEAN CORPUSCULAR HEMOGLOBIN 26.5 pg (26.0-34.0); MEAN CORPUSCULAR HGB CONC 32.6 G/dL (31.0-37.0); MEAN CORPUSCULAR VOLUME 81 fL (80-100); PLATELET COUNT (AUTO) 85 K/uL (150-450); RED BLOOD CELL COUNT(AUTO) 2.96 MIL/uL (4.50-5.90); RED CELL DISTRIBUTION WIDTH 24.6 % (11.5-14.5); WHITE BLOOD COUNT (AUTO) 12.6 K/uL (4.5-11.0)
[2023-10-21 06:47] LABS: HEMOGLOBIN A1C 5.8 % (3.8-5.6)
[2023-10-21 07:16] LABS: ALANINE AMINOTRANSFERASE 108 U/L (12-78); ALBUMIN 2.2 g/dL (3.4-5.0); ALKALINE PHOSPHATASE 73 U/L (46-116); ANION GAP 9 mmol/L (8-16); ASPARTATE AMINOTRANSFERASE 76 U/L (15-37); BILIRUBIN,TOTAL 0.6 mg/dL (0.1-1.0); CALCIUM, TOTAL 8.4 mg/dL (8.8-10.5); CARBON DIOXIDE 24 mmol/L (22-29); CHLORIDE 108 mmol/L (98-107); CHOL/HDL RATIO 1.9 (4.2-7.3); CHOLESTEROL 55 mg/dL (131-200); CREATININE 0.96 mg/dL (0.60-1.30); GLOMERULAR FILTR. RATE CALC > 60 mL/min (>60); GLUCOSE,RANDOM 149 mg/dL (70-110); HDL CHOLESTEROL 29 mg/dL (40-60); LDL CHOL (CALC.) 20 mg/dL (0-130); POTASSIUM 4.2 mmol/L (3.5-5.1); SODIUM SERUM 141 mmol/L (136-145); THYROID STIMULATING HORMONE 0.87 uIU/mL (0.36-3.74); TOTAL PROTEIN, SERUM 5.9 g/dL (6.4-8.2); TRIGLYCERIDES 28 mg/dL (15-150); UREA NITROGEN, BLOOD 22 mg/dL (7-18)
[2023-10-21] MEDS: BUDESONIDE 0.5 MG/2 ML NEB SOLUTION NEB SCH (07:27)
[2023-10-21 07:58] LABS: BAND NEUTROPHILS % (MANUAL) 3 % (0-5); LYMPHOCYTES % (MANUAL) 3 % (22-44); METAMYELOCYTES % 1 % (0-0); MONOCYTES % (MANUAL) 2 % (2-9); MYELOCYTES % 1 % (0-0); SEGMENTED NEUTROPHILS % 90 % (40-70); TOTAL CELLS COUNTED 100
[2023-10-21 07:59] LABS: RBC MORPHOLOGY COMMENT ABNORMAL RBC MORPH
[2023-10-21] MEDS: ZIPRASIDONE HCL 80 MG CAPSULE PO SCH ×2 (08:00→18:00)
[2023-10-21] MEDS ORDERED: PredniSONE 20 MG TABLET PO SCH (09:00)
[2023-10-21] MEDS: BENZONATATE 100 MG CAPSULE PO SCH ×2 (09:40→15:57)
[2023-10-21] MEDS: MethylPREDNISolone SOD SUCC 125 MG/2 ML VIAL IVP SCH (09:40)
[2023-10-21] MEDS: ASPIRIN 81 MG DR TABLET PO SCH (09:40)
[2023-10-21] MEDS: PANTOPRAZOLE SODIUM 40 MG/VIAL IVP SCH (09:40)
[2023-10-21] MEDS: DOCUSATE SODIUM 100 MG CAPSULE PO SCH (09:41)
[2023-10-21] MEDS: GuaiFENesin SR 600 MG ER TABLET PO SCH (09:41)
[2023-10-21] MEDS ORDERED: QUET300T19 PO (11:19)
[2023-10-21] MEDS ORDERED: LEVO750T68 PO (11:19)
[2023-10-21] MEDS ORDERED: PRED-549 PO (11:19)
[2023-10-21] MEDS ORDERED: ZIPR80CA9 PO (11:19)
[2023-10-21] MEDS ORDERED: PANT-31 PO (11:19)
[2023-10-21] MEDS ORDERED: PRED-554 PO (11:19)
[2023-10-21] MEDS ORDERED: TRAZ-252 PO (11:19)
[2023-10-21] MEDS: CefTRIAXone SODIUM 2 GM in DEXTROSE 5%-WATER 50 ML IV SCH (15:53)
== END 2023-10-21 18:22 | disposition home health service (06) | DRG 241 ==
LOC: EMS 12:31 → AHU 14:58 → 5S 17:13 → ICU 10-14 08:30 → 5S 10-18 12:00 → 6S 10-20 22:20
PROVIDERS: ADMIT Internal Medicine; ATTEND Internal Medicine
PROC: 30233N1 Transfusion of Nonautologous Red Blood Cells into Peripheral Vein, Percutaneous Approach (ICD-10-PCS; principal; 2023-10-13)
PROC: 05H933Z Insertion of Infusion Device into Right Brachial Vein, Percutaneous Approach (ICD-10-PCS; 2023-10-14)
PROC: 05HC33Z Insertion of Infusion Device into Left Basilic Vein, Percutaneous Approach (ICD-10-PCS; 2023-10-14)
PROC: 0DJ08ZZ Inspection of Upper Intestinal Tract, Via Natural or Artificial Opening Endoscopic (ICD-10-PCS; 2023-10-17)
DX: K29.61 Other gastritis with bleeding (principal); J96.01 Acute respiratory failure with hypoxia; N17.0 Acute kidney failure with tubular necrosis; J69.0 Pneumonitis due to inhalation of food and vomit; A41.9 Sepsis, unspecified organism; I21.A1 Myocardial infarction type 2; E11.9 Type 2 diabetes mellitus without complications; D50.9 Iron deficiency anemia, unspecified; J44.1 Chronic obstructive pulmonary disease with (acute) exacerbation; E87.0 Hyperosmolality and hypernatremia; F17.210 Nicotine dependence, cigarettes, uncomplicated; I99.8 Other disorder of circulatory system; E78.5 Hyperlipidemia, unspecified; R41.82 Altered mental status, unspecified; B19.20 Unspecified viral hepatitis C without hepatic coma; I10 Essential (primary) hypertension; K74.60 Unspecified cirrhosis of liver; Z79.899 Other long term (current) drug therapy; Z86.16 Personal history of COVID-19; Z88.1 Allergy status to other antibiotic agents; Z79.82 Long term (current) use of aspirin; Z71.6 Tobacco abuse counseling
CPT/HCPCS: 36245; 36569; 36600; 71045; 71250; 72192; 74150; 76937; 80048; 80053; 80061; 80307; 81001; 82140; 82728; 82805; 82962; 83010; 83036; 83540; 83550; 83605; 83735; 83880; 84100; 84132; 84145; 84443; 84484; 85007; 85025; 85027; 85379; 85384; 85610; 85730; 86850; 86900; 86901; 86923; 87040; 87081; 92526; 92610; 93005; 93306; 94640; 94660; 97116; 97162; 97163; 97166; 97530; 99285; C9113; J0696; J1940; J2060; J2270; J2704; J2930; J3490; J7030; J7040; J7050; J7060; P9016; 36415-L1; 36415-TC; J7613